=== PATIENT | female | born 1945 | race Caucasian/White ===

== ENCOUNTER 2020-10-18 14:56 | Outpatient (REF) | payer SELFPAY | END 2020-10-18 14:57 | disposition home or self-care (01) | LOC: HO.HAP 14:56 | PROVIDERS: Visit Provider Internal Medicine | DX: Z13.89 Encounter for screening for other disorder (principal) ==

== ENCOUNTER 2021-08-07 11:01 | Outpatient (REF) | payer SELFPAY | END 2021-08-07 11:02 | disposition home or self-care (01) | LOC: HO.HAP 11:01 | PROVIDERS: Visit Provider Internal Medicine | DX: Z46.1 Encounter for fitting and adjustment of hearing aid (principal); H90.3 Sensorineural hearing loss, bilateral | CPT/HCPCS: V5014 ==

== ENCOUNTER 2023-03-10 10:31 | Outpatient (REF) | payer SELFPAY ==
--- NOTE | 2023-03-10 11:58 | MHC.AU.HA3 ---
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 Called She - quoted $150.00 for oncology rn replacement. She inquired about her health insurance covering cost as she reportedly has $1700.00 for hearing aids. Advised possible benefit for new hearing aids but unlikely for hearing aid services. Explained she will have to self-pay for repair and can try to submit for reimbursement to her insurance herself if she chooses. Seh approved replacement. Cleaned hearing aid. Replaced oncology rn and dome. A listening check demonstrated the hearing aid is still functioning. Recommendations: Hearing instrument follow-up or maintenance as needed. Please contact our clinic with any questions or concerns. Diagnosis Code(s): Primary Diagnosis: H90.3 Bilateral Sensorineural Hearing Loss Signature: Provider: Kenneth Contreras, [facility]
== END 2023-03-10 10:32 | disposition home or self-care (01) ==
LOC: HO.HAP 10:31
PROVIDERS: Visit Provider Internal Medicine
DX: Z46.1 Encounter for fitting and adjustment of hearing aid (principal); H90.3 Sensorineural hearing loss, bilateral
CPT/HCPCS: V5299